=== PATIENT | male | born 1955 ===

== ENCOUNTER → 2019-10-17 09:51 | Outpatient (CLI) | payer BC ==
[~2019-10-17 09:51] MED LIST: BAYER CHEWABLE81 MG PO; FLOMAX0.4 MG PO; PLAVIX75 MG PO; PRAVACHOL20 MG PO; PROSCAR5 MG PO
--- NOTE | 2019-10-21 11:24 | ST ---
PATIENT:ANDRES PAREDES MEDICAL RECORD: [id number] SEX: M LOCATION:[facility] ORDER #: ADMISSION DATE: 10/17/19 AGE OF PATIENT: 64 REFERRING PHYSICIAN: INTERPRETING PHYSICIAN: JAKUB CHAMBERS MD DATE OF SERVICE: 10/17/2019 NUCLEAR STRESS TEST INDICATIONS: Angina, hyperlipidemia. The patient was exercised on standard David protocol for 10 minutes achieving 85% max target heart rate response with 33 mCi of sestamibi injected at peak stress, 11 mCi used previously for rest images. FINDINGS: Gated SPECT reveals preserved ejection fraction at 62% with good wall motioning and thickening and brightening throughout all segments. SPECT imaging Cardiolite was used as myocardial perfusion agent. There is definite reversibility inferiorly and apically. This includes the basal, mid, apical, inferior segments, as well as the apex itself. The degree of reversibility is moderate. The amount of myocardial involved is moderate. OVERALL IMPRESSION: This is an intermediate risk abnormal nuclear stress test with a moderate amount of myocardium at risk inferiorly and apically suggestive of hemodynamically significant coronary artery disease. TRANSINT:[id number] Voice Confirmation ID: [id number] DOCUMENT ID: [id number] JAKUB CHAMBERS MD at 1124 CC: MARY RIZVI [id number] DICTATION DATE: 10/17/19 1339 INTERNSHIP: 10/17/192057 DEP CLI 10/17/19 [facility] [address] [place] [address]
[2019-10-27 11:01] VITALS: BMI 38.4
== END | disposition home or self-care (01) ==
LOC: D.HCCARDIO 09:51
PROVIDERS: ATTEND Internal Medicine Interventional Cardiology
DX: I20.9 Angina pectoris, unspecified (principal)